=== PATIENT | male | born 1955 | race Caucasian/White ===

== ENCOUNTER 2017-04-13 20:06 | Inpatient (IN) | payer OTHER ==
[~2017-04-13] VITALS: Ht 182.9 cm; Wt 123.8 kg
[~2017-04-13 20:06] MED LIST: ABILIFY15 M1 PO; ALAVERT10 M3 PO; ANTIVERT/2525 MG PO; ASPI-COR81 M3 PO; ASPIRIN81 M3 PO; CHERATUSSIN AC 15 ML PO; CIPRO250 MG PO; CLARITIN10 MG PO; CLINDAMYCIN300 M1 PO; COLACE100 MG PO; FLO4 PO; FLONS; FLUOXETINE HCL20 MG PO; FLUOXETINE40 MG PO; FLUTICASON NS; HYDROCHLOROTHIA25 MG PO; HYDROCODONE-APA1 TA2 PO; IBU800 M1 PO; LAC PO; LORAZEPAM1 MG PO; LORAZEPAM2 MG PO; MAG PO; MECLIZINE HCL25 M1 PO; MECLIZINE HYDRO25 M1 PO; MEDDP PO; METFORMIN ER500 M1 PO; METFORMIN500 M1 PO; MOTRIN800 MG PO; NORCO1 TA2 GT; NORCO1 TA2 PO; PANTOPRAZOLE SO40 M1 PO; POTASSIUM CHLO20 ME1 PO; SIMVASTATIN10 M1 PO; SING10 PO; VENTOLIN H0.09 MG/A1 IH; ZESTRIL5 MG PO; [UNRECOGNIZED DRUG - OTHER] NS
[2017-04-13 21:10] LABS: PLATELET COUNT 200 x10^3mcL (130-400); RED CELL DISTRIBUTION WIDTH 12.9 % (11.5-14.5)
[2017-04-13 21:11] LABS: CALCIUM 9.1 mg/dL (8.5-10.1); CARBON DIOXIDE 28.7 mmol/L (21-32); CREATININE SERUM 1.3 mg/dL (0.7-1.3); POTASSIUM SERUM 4.3 mmol/L (3.5-5.1)
[2017-04-13 21:15] LABS: ALBUMIN 3.4 g/dL (3.4-5.0); BILIRUBIN TOTAL 0.5 mg/dL (0.20-1.00); TOTAL PROTEIN, SERUM 6.8 g/dL (6.4-8.2)
[2017-04-13 21:35] LABS: BAND NEUTROPHIL 3 % (0-10); BASOPHIL 0 % (0-2); SEGMENTED NEUTROPHILS 79 % (37-75)
[2017-04-13 21:36] LABS: MONOCYTE 11 % (0-7); PLATELET MORPHOLOGY PLATELETS NORMAL
[2017-04-13 21:48] LABS: UA SPECIFIC GRAVITY <=1.005 (1.005-1.035); microscopic required? YES; urine erythrocyte 1+ (NEGATIVE)
[2017-04-14] MEDS ORDERED: ATIVAN1 MG PO (03:08)
[2017-04-14] MEDS ORDERED: FLUOXETINE40 MG PO (03:10)
[2017-04-14 03:20] VITALS: BP 125/61
[2017-04-14 03:53] LABS: T3 TOTAL 0.86 ng/mL
[2017-04-14 04:31] LABS: CHOLESTEROL/HDL RATIO 3.4
[2017-04-14 04:38] LABS: FREE T4 1.13 ng/dL (0.76-1.46); FREE THYROXINE INDEX 2.2 ug/dL (1.4-4.5); T4(THYROXINE) 6.4 ug/dL (4.7-13.3)
[2017-04-14 05:15] VITALS: BP 125/61
[2017-04-14 06:16] VITALS: BP 136/81
[2017-04-14 06:39] LABS: PLATELET COUNT 195 x10^3mcL (130-400); RED CELL DISTRIBUTION WIDTH 13.1 % (11.5-14.5)
[2017-04-14 06:50] LABS: CALCIUM 8.7 mg/dL (8.5-10.1); CARBON DIOXIDE 27.4 mmol/L (21-32); CHLORIDE SERUM 106 mmol/L (98-107); CREATININE SERUM 1.2 mg/dL (0.7-1.3); GFR1 > 60 mL/min; GLUCOSE SERUM 110 mg/dL (74-106); MAGNESIUM 1.8 mg/dL (1.8-2.4); PHOSPHOROUS 3.2 mg/dL (2.5-4.9); POTASSIUM SERUM 4.2 mmol/L (3.5-5.1); SODIUM SERUM 140 mmol/L (136-145)
[2017-04-14 09:40] VITALS: BP 119/747
[2017-04-14 10:03] LABS: BAND NEUTROPHIL 1 % (0-10); BASOPHIL 0 % (0-2); MONOCYTE 11 % (0-7); SEGMENTED NEUTROPHILS 77 % (37-75); rbc morphology (normal/abnorm) ABNORMAL (NORMAL)
[2017-04-14 10:04] LABS: PLATELET MORPHOLOGY PLATELETS DECREASED
[2017-04-14 14:30] VITALS: BP 130/73
[2017-04-14] MEDS ORDERED: TRAZODONE50 M1 PO (15:36)
[2017-04-14 20:49] VITALS: BP 115/59
[2017-04-15 05:38] VITALS: BP 112/69
[2017-04-15 06:05] LABS: PLATELET COUNT 192 x10^3mcL (130-400); RED CELL DISTRIBUTION WIDTH 13.2 % (11.5-14.5)
[2017-04-15 06:42] LABS: BILIRUBIN TOTAL 1.1 mg/dL (0.20-1.00); CALCIUM 9.2 mg/dL (8.5-10.1); CARBON DIOXIDE 26.2 mmol/L (21-32); CREATININE SERUM 1.4 mg/dL (0.7-1.3); POTASSIUM SERUM 4.2 mmol/L (3.5-5.1); TOTAL PROTEIN, SERUM 6.6 g/dL (6.4-8.2)
[2017-04-15 06:44] LABS: ALBUMIN 2.7 g/dL (3.4-5.0)
[2017-04-15 08:36] VITALS: BP 88/51
[2017-04-15 08:57] LABS: BAND NEUTROPHIL 1 % (0-10); BASOPHIL 0 % (0-2); MONOCYTE 8 % (0-7); SEGMENTED NEUTROPHILS 87 % (37-75)
[2017-04-15 08:58] LABS: PLATELET MORPHOLOGY PLT CLUMPS SEEN; rbc morphology (normal/abnorm) ABNORMAL (NORMAL)
[2017-04-15 09:24] VITALS: BP 88/51
[2017-04-15 15:20] LABS: PLATELET COUNT 155 x10^3mcL (130-400)
[2017-04-15 15:31] VITALS: BP 117/82
[2017-04-15 15:31] LABS: BILIRUBIN TOTAL 0.8 mg/dL (0.20-1.00); CALCIUM 8.2 mg/dL (8.5-10.1); CARBON DIOXIDE 22.4 mmol/L (21-32); MAGNESIUM 1.8 mg/dL (1.8-2.4); POTASSIUM SERUM 4.3 mmol/L (3.5-5.1)
[2017-04-15 15:32] LABS: ALBUMIN 2.4 g/dL (3.4-5.0)
[2017-04-15 15:36] LABS: BAND NEUTROPHIL 3 % (0-10); BASOPHIL 0 % (0-2); MONOCYTE 6 % (0-7); SEGMENTED NEUTROPHILS 86 % (37-75)
[2017-04-15 15:37] LABS: rbc morphology (normal/abnorm) ABNORMAL (NORMAL)
[2017-04-15 19:40] VITALS: BP 112/70
[2017-04-15 21:50] LABS: PLATELET COUNT 168 x10^3mcL (130-400); RED CELL DISTRIBUTION WIDTH 13.9 % (11.5-14.5)
[2017-04-15 22:03] LABS: BAND NEUTROPHIL 4 % (0-10); BASOPHIL 0 % (0-2); MONOCYTE 5 % (0-7); SEGMENTED NEUTROPHILS 84 % (37-75); rbc morphology (normal/abnorm) ABNORMAL (NORMAL)
[2017-04-15 22:10] LABS: ALBUMIN 2.2 g/dL (3.4-5.0); BILIRUBIN TOTAL 0.5 mg/dL (0.20-1.00); CALCIUM 8.2 mg/dL (8.5-10.1); CARBON DIOXIDE 22.6 mmol/L (21-32); CREATININE SERUM 1.6 mg/dL (0.7-1.3); POTASSIUM SERUM 4.9 mmol/L (3.5-5.1); TOTAL PROTEIN, SERUM 5.9 g/dL (6.4-8.2)
[2017-04-15 23:09] VITALS: BP 99/63
[2017-04-16 03:09] VITALS: BP 104/49
[2017-04-16 05:47] LABS: PLATELET COUNT 166 x10^3mcL (130-400); RED CELL DISTRIBUTION WIDTH 14.2 % (11.5-14.5)
[2017-04-16 06:24] LABS: BILIRUBIN TOTAL 0.38 mg/dL (0.20-1.00); CALCIUM 8.7 mg/dL (8.5-10.1); CARBON DIOXIDE 24.7 mmol/L (21-32); CREATININE SERUM 1.4 mg/dL (0.7-1.3); POTASSIUM SERUM 4.3 mmol/L (3.5-5.1)
[2017-04-16 06:26] LABS: ALBUMIN 2.1 g/dL (3.4-5.0); TOTAL PROTEIN, SERUM 5.8 g/dL (6.4-8.2)
[2017-04-16 07:30] VITALS: BP 116/65
[2017-04-16 08:44] LABS: BAND NEUTROPHIL 5 % (0-10); MONOCYTE 8 % (0-7); SEGMENTED NEUTROPHILS 81 % (37-75); rbc morphology (normal/abnorm) NORMAL (NORMAL)
[2017-04-16 12:51] VITALS: BP 102/64
[2017-04-16 17:13] VITALS: BP 116/74; BP 117/73
[2017-04-16 20:17] VITALS: BP 104/65
[2017-04-17] VITALS (7 sets, daily range): BP systolic 80–142; BP diastolic 49–89
[2017-04-17 06:05] LABS: BASOPHIL % 0.2 % (0-2); PLATELET COUNT 161 x10^3mcL (130-400); RED CELL DISTRIBUTION WIDTH 14.1 % (11.5-14.5)
[2017-04-17 06:44] LABS: ALKALINE PHOSPHATASE 57 U/L (46-116); ALT/SGPT 42 U/L (16-63); AST/SGOT 34 U/L (15-37); BILIRUBIN TOTAL 0.36 mg/dL (0.20-1.00); CALCIUM 8.7 mg/dL (8.5-10.1); CARBON DIOXIDE 23.7 mmol/L (21-32); CHLORIDE SERUM 108 mmol/L (98-107); CREATININE SERUM 1.2 mg/dL (0.7-1.3); GFR1 > 60 mL/min; GLUCOSE SERUM 119 mg/dL (74-106); POTASSIUM SERUM 3.7 mmol/L (3.5-5.1); SODIUM SERUM 140 mmol/L (136-145)
[2017-04-17 06:54] LABS: ALBUMIN 2.1 g/dL (3.4-5.0); TOTAL PROTEIN, SERUM 5.6 g/dL (6.4-8.2)
[2017-04-18 01:15] VITALS: BP 128/77
[2017-04-18 05:59] VITALS: BP 139/81
[2017-04-18 06:15] LABS: PLATELET COUNT 179 x10^3mcL (130-400); RED CELL DISTRIBUTION WIDTH 13.7 % (11.5-14.5)
[2017-04-18 06:42] LABS: CALCIUM 8.9 mg/dL (8.5-10.1); CARBON DIOXIDE 26.1 mmol/L (21-32); CHLORIDE SERUM 106 mmol/L (98-107); CREATININE SERUM 1.1 mg/dL (0.7-1.3); GFR1 > 60 mL/min; GLUCOSE SERUM 102 mg/dL (74-106); MAGNESIUM 1.8 mg/dL (1.8-2.4); PHOSPHOROUS 2.5 mg/dL (2.5-4.9); POTASSIUM SERUM 3.7 mmol/L (3.5-5.1); SODIUM SERUM 141 mmol/L (136-145)
[2017-04-18 09:22] VITALS: BP 122/76
[2017-04-18 10:41] LABS: BASOPHIL 0 % (0-2); MONOCYTE 12 % (0-7); SEGMENTED NEUTROPHILS 63 % (37-75)
[2017-04-18 10:44] LABS: BAND NEUTROPHIL 2 % (0-10)
[2017-04-18 16:20] VITALS: BP 144/76
[2017-04-18 19:40] VITALS: BP 158/91
[2017-04-19 06:03] VITALS: BP 138/82
[2017-04-19 06:17] LABS: CARBON DIOXIDE 26.2 mmol/L (21-32); CHLORIDE SERUM 103 mmol/L (98-107); GFR1 > 60 mL/min; GLUCOSE SERUM 101 mg/dL (74-106); MAGNESIUM 1.7 mg/dL (1.8-2.4); PHOSPHOROUS 2.9 mg/dL (2.5-4.9); POTASSIUM SERUM 3.5 mmol/L (3.5-5.1); SODIUM SERUM 139 mmol/L (136-145)
[2017-04-19 06:21] LABS: BASOPHIL % 0.4 % (0-2); PLATELET COUNT 223 x10^3mcL (130-400); RED CELL DISTRIBUTION WIDTH 13.6 % (11.5-14.5)
[2017-04-19 10:00] VITALS: BP 114/70
[2017-04-19 16:36] VITALS: BP 134/89
[2017-04-19 19:55] VITALS: BP 141/68
[2017-04-20 05:45] VITALS: BP 121/66
[2017-04-20 06:21] LABS: PLATELET COUNT 290 x10^3mcL (130-400); RED CELL DISTRIBUTION WIDTH 13.8 % (11.5-14.5)
[2017-04-20 08:42] LABS: BAND NEUTROPHIL 1 % (0-10); BASOPHIL 0 % (0-2); MONOCYTE 14 % (0-7); SEGMENTED NEUTROPHILS 71 % (37-75)
[2017-04-20 10:14] VITALS: BP 97/57
[2017-04-20 13:31] LABS: ALKALINE PHOSPHATASE 72 U/L (46-116); ALT/SGPT 47 U/L (16-63); AST/SGOT 45 U/L (15-37); BILIRUBIN TOTAL 0.5 mg/dL (0.20-1.00); CALCIUM 9.3 mg/dL (8.5-10.1); CARBON DIOXIDE 27.7 mmol/L (21-32); CHLORIDE SERUM 103 mmol/L (98-107); CREATININE SERUM 1.2 mg/dL (0.7-1.3); GFR1 > 60 mL/min; GLUCOSE SERUM 97 mg/dL (74-106); POTASSIUM SERUM 4.8 mmol/L (3.5-5.1); SODIUM SERUM 140 mmol/L (136-145); TOTAL PROTEIN, SERUM 6.5 g/dL (6.4-8.2)
[2017-04-20 13:32] LABS: ALBUMIN 2.3 g/dL (3.4-5.0)
[2017-04-20 17:59] VITALS: BP 97/57
[2017-04-20 18:33] VITALS: BP 118/63
[2017-04-20 21:13] VITALS: BP 105/61
[2017-04-21 05:58] VITALS: BP 107/63
[2017-04-21 07:14] LABS: PLATELET COUNT 280 x10^3mcL (130-400); RED CELL DISTRIBUTION WIDTH 13.9 % (11.5-14.5)
[2017-04-21 07:23] LABS: CALCIUM 8.7 mg/dL (8.5-10.1); CARBON DIOXIDE 25.7 mmol/L (21-32); CHLORIDE SERUM 103 mmol/L (98-107); CREATININE SERUM 1.2 mg/dL (0.7-1.3); GFR1 > 60 mL/min; GLUCOSE SERUM 94 mg/dL (74-106); MAGNESIUM 1.9 mg/dL (1.8-2.4); PHOSPHOROUS 2.8 mg/dL (2.5-4.9); POTASSIUM SERUM 3.7 mmol/L (3.5-5.1); SODIUM SERUM 137 mmol/L (136-145)
[2017-04-21 09:26] VITALS: Ht 182.9 cm; Wt 123.8 kg
[2017-04-21 09:58] VITALS: BP 162/72
[2017-04-21 10:41] LABS: BAND NEUTROPHIL 3 % (0-10); BASOPHIL 0 % (0-2); METAMYELOCTE 1 % (0-2); MONOCYTE 10 % (0-7); MYELOCYTE 1 % (0-2); SEGMENTED NEUTROPHILS 71 % (37-75)
[2017-04-21 13:00] VITALS: BP 113/69
[2017-04-21 17:26] VITALS: BP 103/67
[2017-04-21 20:23] VITALS: BP 122/67
[2017-04-22 06:15] VITALS: BP 123/67
[2017-04-22 06:52] LABS: PLATELET COUNT 350 x10^3mcL (130-400); RED CELL DISTRIBUTION WIDTH 14.2 % (11.5-14.5)
[2017-04-22 07:08] LABS: CALCIUM 8.9 mg/dL (8.5-10.1); CARBON DIOXIDE 26.3 mmol/L (21-32); CHLORIDE SERUM 103 mmol/L (98-107); CREATININE SERUM 1.1 mg/dL (0.7-1.3); GFR1 > 60 mL/min; GLUCOSE SERUM 91 mg/dL (74-106); MAGNESIUM 1.9 mg/dL (1.8-2.4); PHOSPHOROUS 3.2 mg/dL (2.5-4.9); POTASSIUM SERUM 3.8 mmol/L (3.5-5.1); SODIUM SERUM 138 mmol/L (136-145)
[2017-04-22 08:49] LABS: BAND NEUTROPHIL 0 % (0-10); BASOPHIL 0 % (0-2); METAMYELOCTE 1 % (0-2); MONOCYTE 9 % (0-7); MYELOCYTE 1 % (0-2); SEGMENTED NEUTROPHILS 76 % (37-75)
[2017-04-22 10:30] VITALS: BP 121/59
[2017-04-22 17:53] VITALS: BP 140/78
[2017-04-22 21:37] VITALS: BP 116/64
[2017-04-23 05:39] VITALS: BP 122/69
[2017-04-23 07:17] LABS: PLATELET COUNT 378 x10^3mcL (130-400); RED CELL DISTRIBUTION WIDTH 13.6 % (11.5-14.5)
[2017-04-23 07:31] LABS: CALCIUM 9.5 mg/dL (8.5-10.1); CHLORIDE SERUM 102 mmol/L (98-107); CREATININE SERUM 1.2 mg/dL (0.7-1.3); GFR1 > 60 mL/min; GLUCOSE SERUM 85 mg/dL (74-106); PHOSPHOROUS 3.4 mg/dL (2.5-4.9); POTASSIUM SERUM 3.7 mmol/L (3.5-5.1); SODIUM SERUM 139 mmol/L (136-145)
[2017-04-23 09:35] VITALS: BP 100/50
[2017-04-23 10:07] LABS: BAND NEUTROPHIL 7 % (0-10); BASOPHIL 0 % (0-2); MONOCYTE 9 % (0-7); MYELOCYTE 2 % (0-2); SEGMENTED NEUTROPHILS 72 % (37-75)
[2017-04-23 14:56] VITALS: BP 99/41
[2017-04-23 17:10] LABS: UA SPECIFIC GRAVITY >=1.030 (1.005-1.035); microscopic required? YES; urine erythrocyte TRACE (NEGATIVE)
[2017-04-23 17:42] VITALS: BP 91/43
[2017-04-23 21:18] VITALS: BP 120/81
[2017-04-24] VITALS (10 sets, daily range): BP systolic 102–119; BP diastolic 55–78
[2017-04-24 06:21] LABS: PLATELET COUNT 400 x10^3mcL (130-400); RED CELL DISTRIBUTION WIDTH 13.9 % (11.5-14.5)
[2017-04-24 06:24] LABS: CALCIUM 9.2 mg/dL (8.5-10.1); CARBON DIOXIDE 23.9 mmol/L (21-32); CHLORIDE SERUM 102 mmol/L (98-107); CREATININE SERUM 1.2 mg/dL (0.7-1.3); GFR1 > 60 mL/min; GLUCOSE SERUM 106 mg/dL (74-106); MAGNESIUM 1.9 mg/dL (1.8-2.4); PHOSPHOROUS 2.9 mg/dL (2.5-4.9); POTASSIUM SERUM 3.7 mmol/L (3.5-5.1); SODIUM SERUM 136 mmol/L (136-145)
[2017-04-24 09:37] LABS: ATYPICAL LYMPH 1 %; BAND NEUTROPHIL 0 % (0-10); BASOPHIL 0 % (0-2); MONOCYTE 5 % (0-7); SEGMENTED NEUTROPHILS 84 % (37-75)
[2017-04-24 09:38] LABS: rbc morphology (normal/abnorm) ABNORMAL (NORMAL)
[2017-04-24 13:19] LABS: BILIRUBIN DIRECT 0.14 mg/dL (0.0-0.2); BILIRUBIN TOTAL 0.4 mg/dL (0.20-1.00); TOTAL PROTEIN, SERUM 6.7 g/dL (6.4-8.2)
[2017-04-24 13:20] LABS: ALBUMIN 2.1 g/dL (3.4-5.0)
[2017-04-25 05:48] VITALS: BP 114/68
[2017-04-25 06:22] LABS: BASOPHIL % 0.1 % (0-2)
[2017-04-25 06:30] LABS: CALCIUM 9.1 mg/dL (8.5-10.1); CARBON DIOXIDE 26.8 mmol/L (21-32); CHLORIDE SERUM 103 mmol/L (98-107); CREATININE SERUM 1.2 mg/dL (0.7-1.3); GFR1 > 60 mL/min; GLUCOSE SERUM 97 mg/dL (74-106); PHOSPHOROUS 3.4 mg/dL (2.5-4.9); POTASSIUM SERUM 4.1 mmol/L (3.5-5.1); SODIUM SERUM 138 mmol/L (136-145)
[2017-04-25 07:23] LABS: PLATELET COUNT 435 x10^3mcL (130-400)
[2017-04-25 09:42] VITALS: BP 114/68
[2017-04-25 10:55] VITALS: BP 103/57
[2017-04-25 18:33] VITALS: BP 104/56
[2017-04-25 21:07] VITALS: BP 115/63
[2017-04-26 05:18] VITALS: BP 98/59
[2017-04-26 06:21] LABS: BASOPHIL % 0.3 % (0-2); CALCIUM 9.4 mg/dL (8.5-10.1); CARBON DIOXIDE 25.5 mmol/L (21-32); CHLORIDE SERUM 103 mmol/L (98-107); CREATININE SERUM 1.2 mg/dL (0.7-1.3); GFR1 > 60 mL/min; GLUCOSE SERUM 100 mg/dL (74-106); PHOSPHOROUS 3.3 mg/dL (2.5-4.9); POTASSIUM SERUM 3.9 mmol/L (3.5-5.1); RED CELL DISTRIBUTION WIDTH 13.8 % (11.5-14.5); SODIUM SERUM 139 mmol/L (136-145)
[2017-04-26 06:39] LABS: PLATELET COUNT 474 x10^3mcL (130-400)
[2017-04-26 08:26] VITALS: BP 100/55
[2017-04-26 17:45] VITALS: BP 108/52
[2017-04-26 20:54] VITALS: BP 115/70
[2017-04-26] MEDS ORDERED: ROBAXIN-750750 MG PO (22:58)
[2017-04-26] MEDS ORDERED: LAC PO (22:59)
[2017-04-26] MEDS ORDERED: THERA TABS1 TAB PO (22:59)
[2017-04-26] MEDS ORDERED: REG10 PO (23:01)
[2017-04-26] MEDS ORDERED: COL100 PO (23:01)
[2017-04-26] MEDS ORDERED: SIMETHICONE80 MG CH (23:02)
[2017-04-26] MEDS ORDERED: MONTELUKAST SOD10 M1 PO (23:02)
[2017-04-26] MEDS ORDERED: TYL325 PO (23:03)
[2017-04-26] MEDS ORDERED: APAP/HYDROCODON1 T13 PO (23:03)
[2017-04-27 05:16] VITALS: BP 114/64
[2017-04-27 06:58] LABS: BASOPHIL % 0.5 % (0-2); PLATELET COUNT 495 x10^3mcL (130-400)
[2017-04-27 09:25] VITALS: BP 113/70
[2017-04-27 12:27] VITALS: BP 113/70
[2017-04-27] MEDS ORDERED: UNA3I IV (12:46)
[2017-04-27] MEDS ORDERED: [UNRECOGNIZED DRUG - CODE] IV (12:49)
[2017-04-27] MEDS ORDERED: DUL10S RC (12:53)
[2017-04-27] MEDS ORDERED: DIFLUCAN200 MG PO (12:53)
[2017-04-27] MEDS ORDERED: LORAZEPAM1 MG PO (12:54)
== END 2017-04-27 14:23 | DRG 710 ==
LOC: ED 20:06 → IC 04-14 00:53 → MU 04-14 00:53 → DU 04-14 00:53 → IC 04-15 14:35 → DU 04-16 11:29 → MU 04-18 06:07
PROVIDERS: Emergency Medicine; Family Medicine; Internal Medicine Infectious Disease; Surgery; ADMIT Family Medicine
PROC: 0FJ44ZZ Inspection of Gallbladder, Percutaneous Endoscopic Approach (ICD-10-PCS; 2017-04-15)
PROC: BF131ZZ Fluoroscopy of Gallbladder and Bile Ducts using Low Osmolar Contrast (ICD-10-PCS; 2017-04-15)
PROC: 0DNL0ZZ Release Transverse Colon, Open Approach (ICD-10-PCS; 2017-04-15)
PROC: 0FN40ZZ Release Gallbladder, Open Approach (ICD-10-PCS; 2017-04-15)
PROC: 0FT40ZZ Resection of Gallbladder, Open Approach (ICD-10-PCS; principal; 2017-04-15 09:30)
PROC: 0F798DZ Dilation of Common Bile Duct with Intraluminal Device, Via Natural or Artificial Opening Endoscopic (ICD-10-PCS; 2017-04-17)
DX: A41.9 Sepsis, unspecified organism (principal); N17.0 Acute kidney failure with tubular necrosis; J95.821 Acute postprocedural respiratory failure; E43 Unspecified severe protein-calorie malnutrition; R65.20 Severe sepsis without septic shock; K80.00 Calculus of gallbladder with acute cholecystitis without obstruction; K66.0 Peritoneal adhesions (postprocedural) (postinfection); B95.2 Enterococcus as the cause of diseases classified elsewhere; J44.9 Chronic obstructive pulmonary disease, unspecified; J98.11 Atelectasis; I10 Essential (primary) hypertension; N28.1 Cyst of kidney, acquired; R73.03 Prediabetes; F41.8 Other specified anxiety disorders; F32.9 Major depressive disorder, single episode, unspecified; F17.210 Nicotine dependence, cigarettes, uncomplicated; E66.9 Obesity, unspecified; Z68.37 Body mass index [BMI] 37.0-37.9, adult
CPT/HCPCS: 32405; 32557; 36556; 43262; 78226; 82962; 83880; 84439; 94150; 97110-GP; 97116-GP; 97530-GP; A4628; A9537; C1729; C1758; C1769; C2625; C9113; J0295; J0330; J0744; J1170; J1642; J1644; J2001; J2060; J2175; J2250; J2270; J2405; J2543; J2704; J2710; J2765; J3010; J3370; J3475; J3480; J3490; J7030; J7040; J7050; J7613; J7620; J8597; P9016; Q0092; Q9967

== ENCOUNTER 2017-06-29 14:48 | Emergency (ER) | payer OTHER ==
[~2017-06-29] VITALS: Ht 185.4 cm; Wt 117.1 kg
[~2017-06-29 14:48] MED LIST changes: +APAP/HYDROCODON1 T13 PO; +ATIVAN1 MG PO; +COL100 PO; +DIFLUCAN200 MG PO; +DUL10S RC; +MONTELUKAST SOD10 M1 PO; +REG10 PO; +ROBAXIN-750750 MG PO; +SIMETHICONE80 MG CH; +THERA TABS1 TAB PO; +TRAZODONE50 M1 PO; +TYL325 PO; +UNA3I IV; +[UNRECOGNIZED DRUG - CODE] IV
[2017-06-29 15:47] LABS: BASOPHIL % 0.6 % (0-2); PLATELET COUNT 229 x10^3mcL (130-400)
[2017-06-29 15:49] LABS: RED CELL DISTRIBUTION WIDTH 14.8 % (11.5-14.5)
[2017-06-29 15:55] LABS: CALCIUM 9.4 mg/dL (8.5-10.1); CREATININE SERUM 1.3 mg/dL (0.7-1.3); POTASSIUM SERUM 4.2 mmol/L (3.5-5.1)
[2017-06-29 15:59] LABS: ALBUMIN 3.7 g/dL (3.4-5.0); BILIRUBIN TOTAL 0.3 mg/dL (0.20-1.00); TOTAL PROTEIN, SERUM 7.7 g/dL (6.4-8.2)
[2017-06-29 17:26] VITALS: BP 111/65
== END 2017-06-29 17:26 | disposition home or self-care (01) ==
LOC: ED 14:48
DX: D72.829 Elevated white blood cell count, unspecified (principal); J45.909 Unspecified asthma, uncomplicated; F41.9 Anxiety disorder, unspecified; J44.9 Chronic obstructive pulmonary disease, unspecified; E11.9 Type 2 diabetes mellitus without complications; Z90.49 Acquired absence of other specified parts of digestive tract; Z86.018 Personal history of other benign neoplasm
CPT/HCPCS: 36415; 83880; Q0092

== ENCOUNTER 2017-07-04 14:35 | Emergency (ER) | payer OTHER ==
[~2017-07-04] VITALS: Ht 185.4 cm; Wt 116.1 kg
[2017-07-04 16:08] LABS: BASOPHIL % 0.5 % (0-2); PLATELET COUNT 215 x10^3mcL (130-400)
[2017-07-04 16:09] LABS: RED CELL DISTRIBUTION WIDTH 14.9 % (11.5-14.5)
[2017-07-04 16:12] LABS: CALCIUM 9.1 mg/dL (8.5-10.1); CARBON DIOXIDE 28.9 mmol/L (21-32); CHLORIDE SERUM 105 mmol/L (98-107); CREATININE SERUM 1.2 mg/dL (0.7-1.3); GFR1 > 60 mL/min; GLUCOSE SERUM 110 mg/dL (74-106); SODIUM SERUM 141 mmol/L (136-145)
[2017-07-04 16:16] LABS: ALKALINE PHOSPHATASE 66 U/L (46-116); ALT/SGPT 32 U/L (16-63); AST/SGOT 20 U/L (15-37); BILIRUBIN TOTAL 0.2 mg/dL (0.20-1.00); TOTAL PROTEIN, SERUM 6.7 g/dL (6.4-8.2)
[2017-07-04 16:19] LABS: ALBUMIN 3.1 g/dL (3.4-5.0)
[2017-07-04 17:10] LABS: microscopic required? NO
[2017-07-04 17:19] LABS: urine erythrocyte NEGATIVE (NEGATIVE)
[2017-07-04 17:48] VITALS: BP 116/74
== END 2017-07-04 17:48 | disposition home or self-care (01) ==
LOC: ED 14:35
PROVIDERS: Emergency Medicine
DX: D72.829 Elevated white blood cell count, unspecified (principal); E11.9 Type 2 diabetes mellitus without complications; D68.8 Other specified coagulation defects; I82.721 Chronic embolism and thrombosis of deep veins of right upper extremity; J44.9 Chronic obstructive pulmonary disease, unspecified; I10 Essential (primary) hypertension; J45.909 Unspecified asthma, uncomplicated; Z79.899 Other long term (current) drug therapy
CPT/HCPCS: 36415; Q0092